=== PATIENT | male | born 1980 | race Caucasian/White ===

== ENCOUNTER 2017-05-06 22:39 | Inpatient (IN) | payer SELFPAY ==
[~2017-05-06] VITALS: Ht 175.3 cm; Wt 62.7 kg
[2017-05-06 22:41] VITALS: BP 126/71; PULSE 122; RESP 16; TEMP 98.7; O2SAT 98
[2017-05-07] VITALS (7 sets, daily range): BP systolic 109–118; BP diastolic 63–72; PULSE 76–94; RESP 16–19; TEMP 98.4–101.7; O2SAT 91–99
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
[2017-05-07] MEDS ORDERED: SODIUM CHLOR 0.9% 1000 ML INJ 100 ML IV ONE (00:54)
[2017-05-07] MEDS ORDERED: SODIUM CHLOR 0.9% 1000 ML INJ 1,000 ML IV ONE ×2 (00:54)
[2017-05-07] MEDS ORDERED: VANCOMYCIN INJ 1,000 MG in SODIUM CHLOR 0.9% 250 ML INJ 250 ML IV ONE (01:00)
[2017-05-07 01:30] LABS: AUTOMATED NEUTROPHIL # 4.7 TH/MM3 (1.8-7.7); BASOPHIL % 0.6 % (0.0-2.0); EOSINOPHIL % 0.3 % (0.0-4.0); HEMATOCRIT 41.4 % (39.0-51.0); HEMO FLAGS DIFF FINAL; LYMPH % 14.8 % (9.0-44.0); LYMPHOCYTE # 0.9 TH/MM3 (1.0-4.8); MEAN CELL VOLUME 85.1 FL (80.0-100.0); MEAN CORPUSCULAR HEMOGLOBIN 29.2 PG (27.0-34.0); MEAN CORPUSCULAR HGB CONC 34.3 % (32.0-36.0); MONO % 3.3 % (0.0-8.0); PLATELET COUNT 288 TH/MM3 (150-450); RED BLOOD COUNT 4.86 MIL/MM3 (4.50-5.90); RED CELL DISTRIBUTION WIDTH 15.1 % (11.6-17.2); WHITE BLOOD COUNT 5.9 TH/MM3 (4.0-11.0)
[2017-05-07 01:40] LABS: ALT (GPT) 24 U/L (12-78); ANION GAP 8 MEQ/L (5-15); AST (GOT) 19 U/L (15-37); BLOOD UREA NITROGEN 11 MG/DL (7-18); CHLORIDE 97 MEQ/L (98-107); GLOMERULAR FILTRATION RATE 77 ML/MIN (>89); POTASSIUM 3.7 MEQ/L (3.5-5.1); SODIUM (NA) 132 MEQ/L (136-145)
[2017-05-07 01:42] LABS: ALKALINE PHOSPHATASE 100 U/L (45-117); TOTAL BILIRUBIN ADULT 0.5 MG/DL (0.2-1.0)
[2017-05-07 02:34] LABS: BLOOD, URINE NEG (NEG); GLUCOSE,URINE NEG (NEG); KETONE, URINE NEG (NEG); MUCUS URINE FEW /lpf (OCC); NITRITE,URINE NEG (NEG); URINE COLOR LIGHT-YELLOW (YELLW/STRAW)
[2017-05-07 02:35] LABS: COMMENT (UR) CATH-CULT NOT IND; CULTURE IF INDICATED CATH CULTURE NOT IND
[2017-05-07] MEDS ORDERED: SODIUM CHLORIDE 0.9% FLUSH 10 ML FLUSH IV FLUSH PRN (03:15)
[2017-05-07] MEDS ORDERED: NALOXONE HCL 0.4 MG/ML AMP IV PUSH PRN (03:15)
[2017-05-07] MEDS ORDERED: Vancomycin Consult Pharmacy 1 EA OTHER SCH (03:15)
[2017-05-07 03:18] LABS: LACTIC ACID GHOST NOT REPORTABLE
[2017-05-07] MEDS: PIPERACIL-TAZO 4.5 GM PREMIX 100 ML IV SCH ×4 (04:05→20:44)
[2017-05-07] MEDS ORDERED: ACETAMINOPHEN 325 MG TAB PO PRN (08:00)
[2017-05-07] MEDS: SODIUM CHLOR 0.9% 1000 ML INJ 1,000 ML IV SCH ×3 (08:15→20:44)
[2017-05-07] MEDS: SODIUM CHLORIDE 0.9% FLUSH 10 ML FLUSH IV FLUSH SCH ×2 (08:16→20:44)
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
--- NOTE | 2017-05-07 12:08 | RADRPT ---
EXAM DATE/TIME: 05/07/2017 12:39 [place] COMPARISON: No previous studies available for comparison. INDICATIONS : Cough. MEDICAL HISTORY : None. SURGICAL HISTORY : None. ENCOUNTER: Initial ACUITY: 1 day PAIN SCORE: 0/10 LOCATION: chest FINDINGS: A single view of the chest demonstrates the lungs to be symmetrically aerated without evidence of mas s, infiltrate or effusion. The cardiomediastinal contours are unremarkable. Osseous structures are intact. CONCLUSION: No acute disease. Earnest Garcia MD on May 07, 2017 at 12:05 Board Certified Radiologist. This report was verified electronically.
[2017-05-07] MEDS: VANCOMYCIN INJ 1,250 MG in SODIUM CHLOR 0.9% 250 ML INJ 250 ML IV SCH (13:16)
[2017-05-08] MEDS: VANCOMYCIN INJ 1,250 MG in SODIUM CHLOR 0.9% 250 ML INJ 250 ML IV SCH ×2 (01:00→15:07)
[2017-05-08 03:37] VITALS: BP 118/77; PULSE 71; RESP 18; TEMP 98.5; O2SAT 97
[2017-05-08] MEDS: PIPERACIL-TAZO 4.5 GM PREMIX 100 ML IV SCH ×2 (03:50→09:42)
[2017-05-08 07:22] LABS: AUTOMATED NEUTROPHIL # 3.3 TH/MM3 (1.8-7.7); BASOPHIL % 0.5 % (0.0-2.0); EOSINOPHIL % 0.5 % (0.0-4.0); HEMATOCRIT 37.1 % (39.0-51.0); HEMO FLAGS DIFF FINAL; LYMPH % 26.7 % (9.0-44.0); LYMPHOCYTE # 1.4 TH/MM3 (1.0-4.8); MEAN CELL VOLUME 84.9 FL (80.0-100.0); MEAN CORPUSCULAR HEMOGLOBIN 28.9 PG (27.0-34.0); MONO % 8.8 % (0.0-8.0); NEUT % 63.5 % (16.0-70.0); PLATELET COUNT 235 TH/MM3 (150-450); RED BLOOD COUNT 4.37 MIL/MM3 (4.50-5.90); RED CELL DISTRIBUTION WIDTH 15.3 % (11.6-17.2); WHITE BLOOD COUNT 5.3 TH/MM3 (4.0-11.0)
[2017-05-08 07:48] VITALS: BP 118/76; PULSE 63; RESP 16; TEMP 97.6; O2SAT 96
[2017-05-08 08:05] LABS: BICARBONATE 22.1 MEQ/L (21.0-32.0); POTASSIUM 3.7 MEQ/L (3.5-5.1)
[2017-05-08] MEDS: SODIUM CHLORIDE 0.9% FLUSH 10 ML FLUSH IV FLUSH SCH (09:00)
[2017-05-08] MEDS: SODIUM CHLOR 0.9% 1000 ML INJ 1,000 ML IV SCH (09:36)
--- NOTE | 2017-05-08 09:57 | HHI.PR ---
Subjective Remarks Follow-up for IV drug use, cutaneous abscesses, fungemia. SHEMARLON is currently doing well. He wants to go home. He raises concern that if he doesn't go home he will lose his job and place to stay. He denies any chest pain, shortness of breath, fever or chills. Tolerating diet well. Objective Vitals Vital Signs Date Time Temp Pulse Resp B/P (MAP) Pulse Ox O2 Delivery O2 Flow Rate FiO2 05/08/17 07:48 97.6 63 16 118/76 (90) 96 05/08/17 03:37 98.5 71 18 118/77 (91) 97 05/07/17 23:55 98.8 76 19 117/70 (86) 96 05/07/17 20:17 98.4 77 19 115/71 (86) 95 05/07/17 16:21 99.3 85 16 112/72 (85) 95 05/07/17 11:31 99.0 80 16 112/69 (83) 95 I/O 05/07/17 05/07/17 05/07/17 05/08/17 05/08/17 05/08/17 07:00 15:00 23:00 07:00 15:00 23:00 Intake Total 3300 ml 1850 ml 2100 ml Balance 3300 ml 1850 ml 2100 ml Intake Oral 300 ml 200 ml IV Total 3000 ml 1850 ml 1900 ml Result Diagram: 05/08/17 0550 05/08/17 0550 Imaging Last Impressions Chest X-Ray 05/07/17 0000 Signed Impressions: Service Date/Time: Sunday, May 07, 2017 12:39 - CONCLUSION: No acute disease. Earnest Garcia MD Objective Remarks GENERAL: Alert, oriented 3, NAD. SKIN: Warm and dry. HEAD: Normocephalic. EYES: No scleral icterus. No injection or drainage. NECK: Supple, trachea midline. No JVD or lymphadenopathy. CARDIOVASCULAR: Regular rate and rhythm without murmurs, gallops, or rubs. RESPIRATORY: Breath sounds equal bilaterally. No accessory muscle use. GASTROINTESTINAL: Abdomen soft, non-tender, nondistended. MUSCULOSKELETAL: No cyanosis, or edema. BACK: Nontender without obvious deformity. No CVA tenderness. Procedures None A/P Problem List: (1) Sepsis ICD Code: A41.9 - Sepsis, unspecified organism Status: Acute (2) Candidemia ICD Code: B37.7 - Candidal sepsis (3) Cutaneous abscess ICD Code: L02.91 - Cutaneous abscess, unspecified (4) IV drug abuse ICD Code: F19.10 - Other psychoactive substance abuse, uncomplicated Status: Acute Assessment and Plan Mr. Hughes is a 37-year-old male with a history of IV drug use who presents to the emergency department today due to multiple skin lesions. He also reports fever and chills. Denies any chest pain, shortness of breath but reports cough as well. Blood cx grew yeast. - Sepsis ((pulse rate 122, fever 101.7F, lactic acid 2.1, nor infection skin abscess, fungemia). - Candidemia - Cutaneous abscess - Chest x-ray is unremarkable for any pneumonia. - Blood culture today shows yeast growth. - Will discontinue Zosyn but continue vancomycin for now. - Start Micafungin 100 mg IV every 24 hours. - We'll obtain 2-D echocardiogram. If negative for vegetation, patient will need GRAY for which cardiology consult will be needed. - Discussed with infectious disease (Dr. Valencia). - IV drug abuse - Patient admits to doing IV heroine and crack cocaine. - We'll start patient on methadone 10 mg 3 times a day. This can be weaned off in the next 3-4 days. Full code. Ambulation. Discharge plan: Discussed with patient at length - while he has the right to leave AGAINST MEDICAL ADVICE, given his clinical condition and candidemia, we strongly advised patient not to leave the hospital as it may cause life- threatening illness and possibly . Problem Qualifiers (1) Sepsis: Qualified Codes: A41.9 - Sepsis, unspecified organism Remington Ortiz DO May 08, 2017 9:57 am
[2017-05-08] MEDS ORDERED: PNEUMOCOCCAL POLYVALENT INJ 25 MCG/0.5 ML SYR IM ONE (10:00)
[2017-05-08] MEDS ORDERED: INFLUENZA VIRUS VACCINE (QUADRIVALENT) 0.5 ML SYR IM ONE (10:00)
[2017-05-08 11:26] VITALS: BP 113/79; PULSE 51; RESP 14; TEMP 98.9; O2SAT 100
[2017-05-08] MEDS ORDERED: MICAFUNGIN INJ 100 MG in SODIUM CHLORIDE 0.9% INJ 100 ML IV SCH ×2 (12:00→17:00)
[2017-05-08] MEDS ORDERED: PHARMACY ORDERED LAB ONE (12:45)
[2017-05-08] MEDS ORDERED: METHADONE HCL 10 MG TAB PO SCH (14:00)
[2017-05-08 16:06] VITALS: BP 115/74; PULSE 52; RESP 20; TEMP 96.4
--- NOTE | 2017-05-08 18:00 | PD.ID.CON ---
History of Present Illness Service ID Consult Requested By Dr Ortiz Reason for Consult fungemia Primary Care Physician No Primary Care Physician Diagnoses: History of Present Illness 37 yo male with h/o active IVDU presented with fever, chills x few days He shoots cocain and heroin IV and last injection was 1 week ago On presentation, l fever up to 101.7, no leukocytosis and + lacti acidosis He also co R sided lumbar back pain + some vision changes which according to his girlfriend going on chronically He thinks his vision is worse lately His blood clx are positive for yeast @ 24 hrs 2/2 Review of Systems Constitutional: COMPLAINS OF: Fever, Chills Eyes: COMPLAINS OF: Blurred vision Musculoskeletal: COMPLAINS OF: Back pain Except as stated in HPI: all other systems reviewed are Neg Past Family Social History Allergies: Coded Allergies: iodine (Verified Allergy, Mild, 05/06/17) potassium iodide (Verified Allergy, Mild, 05/06/17) povidone-iodine (Verified Allergy, Mild, 05/06/17) shellfish derived (Verified Allergy, Mild, RED, NAUSEA, 05/06/17) sodium iodide (Verified Allergy, Mild, 05/06/17) sodium iodide (Verified Allergy, Mild, 05/06/17) Past Medical History IVDU Past Surgical History lip repair Active Ordered Medications Medications where reviewed in EMR Antibiotics Include: micafungin Family History father with liver ca Social History no tobacco no ETOH + IVDU Physical Exam Vital Signs Vital Signs Date Time Temp Pulse Resp B/P (MAP) Pulse Ox O2 Delivery O2 Flow Rate FiO2 05/08/17 16:06 96.4 52 20 115/74 (88) 05/08/17 11:26 98.9 51 14 113/79 (90) 100 05/08/17 07:48 97.6 63 16 118/76 (90) 96 05/08/17 03:37 98.5 71 18 118/77 (91) 97 05/07/17 23:55 98.8 76 19 117/70 (86) 96 05/07/17 20:17 98.4 77 19 115/71 (86) 95 Physical Exam CONSTITUTIONAL/GENERAL: This is an adequately nourished patient, in no apparent distress. TUBES/LINES/DRAINS: SKIN: No jaundice, + few excoriated lesions on face and upper extremeites. Skin temperature appropriate. Not diaphoretic. HEAD: Atraumatic. Normocephalic. EYES: Pupils equal and round and reactive, direct and consensual. Extraocular motions intact. No scleral icterus. No injection or drainage. Fundi not examined. ENT: Hearing grossly normal. Nose without bleeding or purulent drainage. Oral mucosae without visible erythema, exudates, masses, or lesions. No thruish NECK: Trachea midline. Supple, nontender. CARDIOVASCULAR: Regular rate and rhythm without murmurs, gallops, or rubs. No JVD. Peripheral pulses symmetric. RESPIRATORY/CHEST: Symmetric, unlabored respirations. Clear to auscultation. Breath sounds equal bilaterally. No wheezes, rales, or rhonchi. GASTROINTESTINAL: Abdomen soft, non-tender, nondistended. No hepato-splenomegaly , or palpable masses. No guarding. Bowel sounds present. GENITOURINARY: Without palpable bladder distension. MUSCULOSKELETAL: Extremities without clubbing, cyanosis, or edema. No joint tenderness or effusion noted. No calf tenderness. No mottling or clubbing. Back: + R side of lower nail making machine tender to palpation LYMPHATICS: No palpable cervical or supraclavicular adenopathy. NEUROLOGICAL: Awake and alert. Motor and sensory grossly within normal limits. Follows commands. clear speech. Moves all extremities. PSYCHIATRIC: No obvious anxiety/depression. no apparent hallucinations or other psychotic thought process. flat affect, not agitated Laboratory Laboratory Tests Test 05/08/17 05:50 05/08/17 14:40 White Blood Count 5.3 Red Blood Count 4.37 Hemoglobin 12.6 Hematocrit 37.1 Mean Corpuscular Volume 84.9 Mean Corpuscular Hemoglobin 28.9 Mean Corpuscular Hemoglobin Concent 34.0 Red Cell Distribution Width 15.3 Platelet Count 235 Mean Platelet Volume 7.2 Neutrophils (%) (Auto) 63.5 Lymphocytes (%) (Auto) 26.7 Monocytes (%) (Auto) 8.8 Eosinophils (%) (Auto) 0.5 Basophils (%) (Auto) 0.5 Neutrophils # (Auto) 3.3 Lymphocytes # (Auto) 1.4 Monocytes # (Auto) 0.5 Eosinophils # (Auto) 0.0 Basophils # (Auto) 0.0 CBC Comment DIFF FINAL Differential Comment Blood Urea Nitrogen 8 Creatinine 0.91 Random Glucose 158 Calcium Level 8.5 Sodium Level 135 Potassium Level 3.7 Chloride Level 104 Carbon Dioxide Level 22.1 Anion Gap 9 Estimat Glomerular Filtration Rate 95 Vancomycin Level Trough 10.9 Date/Time Source Procedure Growth Status 05/07/17 01:10 Blood Peripheral Aerobic Blood Culture - Preliminary Yeast-Id To Follow Resulted 05/07/17 01:10 Blood Peripheral Anaerobic Blood Culture - Preliminary NO GROWTH IN 1 DAY Resulted Result Diagram: 05/08/17 0550 05/08/17 0550 Imaging Last Impressions Chest X-Ray 05/07/17 0000 Signed Impressions: Service Date/Time: Sunday, May 07, 2017 12:39 - CONCLUSION: No acute disease. Earnest Garcia MD Assessment and Plan Assessment and Plan IVDU Fungemia, theresa, not cryptococal cont micafungin add fluconazole 2 D echo, GRAY if negative repeat Blood clx - ophathmologyuy consult MRI L spine Discussed Condition With Dr Diana Valencia,Henrietta Marrero MD May 08, 2017 18:00
[2017-05-09] MEDS ORDERED: VANCOMYCIN INJ 1,500 MG in SODIUM CHLORID 0.9% 500 ML INJ 500 ML IV SCH ×2
[2017-05-10] MEDS ORDERED: PHARMACY ORDERED LAB ONE (11:45)
== END 2017-05-08 19:01 | disposition left against medical advice (07) | DRG 871 ==
LOC: NEPE 22:39 → INTOOBSV 05-07 03:11 → NEDA 05-07 03:11 → NEPGCP 05-07 05:30 → OBSVTOIN 05-07 07:51
PROVIDERS: ADMIT Hospitalist; ATTEND Hospitalist
DX: B37.7 Candidal sepsis (principal); R65.20 Severe sepsis without septic shock; E87.2 Acidosis; E87.1 Hypo-osmolality and hyponatremia; L03.113 Cellulitis of right upper limb; L03.211 Cellulitis of face; F17.210 Nicotine dependence, cigarettes, uncomplicated; F14.10 Cocaine abuse, uncomplicated; F11.10 Opioid abuse, uncomplicated
CPT/HCPCS: 71010; 80048; 80053; 80202; 81001; 83605; 85025; 87040; 87106; 87205; J2248; J2543; J3370; J7030; J7050